=== PATIENT | male | born 1965 | race Caucasian/White ===

== ENCOUNTER → 2020-04-29 | Outpatient (CLI) | payer MEDICARE, BC ==
--- NOTE | 2020-04-29 14:23 | NM ---
EXAMINATION TYPE: NM bone/joint limited DATE OF EXAM: 04/29/2020 COMPARISON: NONE HISTORY: Pleurodynia TECHNIQUE: After the intravenous administration of 26.4 mCi Tc 99m MDP. Images acquired 3 hours pos t injection. Multiple views of ribs are submitted. Posterior left 10th rib shows abnormal uptake in a bandlike distribution IMPRESSION: Findings likely represent fracture, correlate, consider plain film or CT
== END | disposition home or self-care (01) ==
LOC: RADNMMAIN 09:34
PROVIDERS: ATTEND Family Medicine
DX: R07.81 Pleurodynia (principal)
CPT/HCPCS: 78300; A9503

== ENCOUNTER → 2020-05-14 | Outpatient (CLI) | payer MEDICARE, BC ==
--- NOTE | 2020-05-14 17:46 | BD ---
EXAMINATION TYPE: Axial Bone Density DATE OF EXAM: 05/14/2020 COMPARISON: NONE CLINICAL HISTORY: 54 YR OLD MALE.....ICD-10 CODE: Z13.820 OSTEOPOROSIS Nuclear Medicine Study in the last 2 weeks: 15 DAYS AGO Height: 70.0 Weight: 179 FRAX RISK QUESTIONS: Family History (Parent hip fracture): YES History of Fracture in Adulthood: YES 5. Chronic liver disease: SLIGHTLY ELEVATED, RISK FACTORS HISTORY OF: HX OF RIBS FX AN ADULT , HIPS DISLOCATED AT , BREECH, AND HAND AND FINGER FXS Surgery to Spine/): MILD TREATMENT/FORAMINOTOMY TO SPINE Family History of Osteoporosis: YES, GRANDMOTHER, WITH HIP FX Active: YES Hyperparathyroidism: NO Adrenal Insufficiency: NO MEDICATIONS: Additional Medications: BP MEDS, REFLUX MEDS, STATIN FOR CHOLESTEROL, VIT D DAILY, PAIN MEDS, Additional History: HYPERTENSION, FX WITHOUT INJURY, CHOLESTEROL, AND REFLUX EXAM MEASUREMENTS: Bone mineral densitometry was performed using the [employer] System. Bone mineral density as measured about the Lumbar spine is: ----- L1-L4(G/cm2): 1.114 T Score Values are as follows: ----- L1: -1.5 ----- L2: -0.7 ----- L3: 0.0 ----- L4: -0.4 ----- L1-L4: -0.6 Bone mineral density FIRST DEXA STUDY.....BASELINE STUDY Bone mineral density about the R hip (g/cm2): 0.810 Bone mineral density about the L hip (g/cm2): 0.903 T Score values are as follows: -----R Neck: -1.4 -----L Neck: -1.1 -----R Total: -1.6 -----L Total: -0.8 Bone mineral density BASELINE STUDY FRAX%s: THERE IS A 19.1% CHANCE FOR A MAJOR OSTEOPOROTIC FX AND A 1.4% FOR HIP.....PROBABILITY FO R FX IN 10 YRS TIME IMPRESSION: Osteopenia (T Score between -2.5 and -1). There is slightly increased risk of fracture and the patient may be considered for treatment. Re-Screen 2-5 years. NOTE: T-SCORE=SD OF THE YOUNG ADULT MEAN.
== END | disposition home or self-care (01) ==
LOC: RADBDWWP 10:32
PROVIDERS: ATTEND Family Medicine
DX: Z13.820 Encounter for screening for osteoporosis (principal); M85.80 Other specified disorders of bone density and structure, unspecified site
CPT/HCPCS: 77080

== ENCOUNTER 2022-02-25 11:52 | Day surgery (SDC) | payer MEDICARE, BC ==
[2022-02-23 11:19] VITALS: BMI 23.7
[~2022-02-25 11:52] MED LIST: LACTATED RINGERS 1,000 ML IV SCH
[2022-02-25 13:04] VITALS: TEMP 98.7
[2022-02-25] MEDS ORDERED: LIDOCAINE 1% (10MG/ML) FOR IV START INTRADERMA ONE (13:06)
[2022-02-25] MEDS ORDERED: PROPOFOL 10 MG/ML 20 ML VIAL IV ONE (13:39)
--- NOTE | 2022-02-25 13:59 | P.PCN ---
Date of Procedure: 02/25/22 Procedure(s) Performed: BRIEF HISTORY: Patient is a 56-year-old pleasant white male scheduled for an elective colonoscopy as a part of evaluation of prior history of colon polyps/screening for colon cancer. PROCEDURE PERFORMED: Colonoscopy snare polypectomy history of colon polyps. PREOPERATIVE DIAGNOSIS: History of colon polyps. IV sedation per Anesthesia. PROCEDURE: After informed consent was obtained, the patient, was brought into the endoscopy unit. IV sedation was administered by Anesthesia under continuous monitoring. Digital rectal examination was normal. Initially the Olympus CF-160 flexible video colonoscope was then inserted in the rectum, gradually advanced into the cecum without any difficulty. Careful examination was performed as the scope was gradually being withdrawn. Ileocecal valve and the appendiceal orifice were visualized and appeared normal. Prep was excellent. Mucosa of the cecum, ascending colon, appeared normal. In the hepatic flexure there was a 5 mm polyp that was removed by snare polypectomy. Rest of the transverse colon, descending colon, sigmoid colon, and rectum appeared normal. Retroflexion was performed in the rectum and grade 2 internal hemorrhoids were seen. The patient tolerated the procedure well. IMPRESSION: 5 mm hepatic rectal polyp status post snare polypectomy Grade 2 Internal hemorrhoids RECOMMENDATIONS: Findings of this examination were discussed with the paas well as his family. He was advised to follow with the biopsy results. If the biopsy reveals adenoma he can have a repeat colonoscopy in.5 years.
[2022-02-25 14:16] VITALS: BP 130/71; PULSE 60; RESP 15
== END 2022-02-25 14:46 | disposition home or self-care (01) ==
LOC: ORWHC2ENDO 11:52
PROVIDERS: ATTEND Internal Medicine Gastroenterology
DX: Z12.11 Encounter for screening for malignant neoplasm of colon (principal); D12.3 Benign neoplasm of transverse colon; K64.1 Second degree hemorrhoids; Z86.010 Personal history of colon polyps; Z79.899 Other long term (current) drug therapy; Z79.2 Long term (current) use of antibiotics
CPT/HCPCS: 45385; J2704; 88305